=== PATIENT | male | born 1940 | race Caucasian/White ===

== ENCOUNTER 2020-04-13 12:44 | Emergency (ER) | payer BC, SELFPAY ==
[2020-04-13 13:13] VITALS: BP 121/92; PULSE 96; RESP 16; TEMP 36.9; O2SAT 95; BMI 31.4
--- NOTE | 2020-04-13 13:31 | ED_ITS ---
HPI - URI/Sore Throat General Chief Complaint: Upper Respiratory Symptoms Stated Complaint: covid symptoms [id number] Time Seen by Provider: 04/13/20 13:15 Source: patient Mode of arrival: ambulatory Limitations: no limitations History of Present Illness HPI Narrative: Patient tells me he has had chills, subjective fevers, vomiting for 2 days. No cough, shortness of breath, chest pain. No abdominal pain or diarrhea. Onset (ago): day(s) Consistency: constant Severity: mild Able to tolerate fluids by mouth: Yes Associated symptoms: denies other symptoms Related Data Allergies Allergy/AdvReac Type Severity Reaction Status Date / Time No Known Allergies Allergy Verified 04/13/20 13:31 Review of Systems Review of Systems: Yes all other systems are reviewed and are negative Constitutional: Constitutional: Reports no additional constitutional co mplaints, Denies body ache(s), Reports chills, Reports fever(s) (subjective ), Denies headache(s) and Denies weakness Eyes: Eyes: Reports no additional eye complaints and Denies change in vision ENT: Reports system reviewed and no additional complaints, except as documented, Denies headache(s), Denies nasal congestion and Denies nasal discharge Cardiovascular: Cardiovascular: Reports no additional cardiovascular complaints, Denies chest pain, Denies leg edema and Denies dyspnea Respiratory: Respiratory: Reports no additional respiratory complaints, Denies cough and Denies dyspnea Gastrointestinal: Gastrointestinal: Reports no additional gastrointestinal complaints, Denies abdominal pain, Denies diarrhea, Reports nausea and Reports vomiting Musculoskeletal: Musculoskeletal: Reports no additional musculoskeletal complaints, Denies back pain, Denies myalgias, Denies arthralgias, Denies joint swelling, Denies numbness and Denies tingling Integumentary/Breasts: Skin/Breast: Reports system reviewed and no additional complaints, except as docu and Denies rash Neurologic: Reports system reviewed and no additional complaints, except as documented, Denies Abnormal speech present, Denies headache(s), Denies focal weakness, Denies numbness, Denies tingling and Denies weakness PMFSH Past Medical History Attestation statement: The following information was validated with the patient. Source: obtained from family and nursing notes reviewed Medical History Anxiety FH: mastectomy Neuropathy Social History Social History Advance Directives: No Advance Directives Information Provided: Yes Physical Exam Vital Signs and I&O and Narrative: Vital Signs and I&O: Vital Signs Temp 98.5 F 04/13/20 13:13 Pulse 96 04/13/20 13:13 Resp 16 04/13/20 13:13 BP 121/92 H 04/13/20 13:13 Pulse Ox 95 04/13/20 13:13 Intake & Output 04/12/20 04/13/20 04/13/20 18:59 06:59 18:59 Weight 99.337 kg Body Mass Index 31.4 Const: General: cooperative, healthy appearing, comfortable and no acute distress Orientation/consciousness: patient oriented x3 Limitations: no limitations HENMT: Head: Yes normal to inspection Ears: hearing grossly normal bilaterally General nose exam: Normal external nose present Face and sinus: Yes normal facial exam Mouth: Normal oral and palatal mucosa present Throat: Yes posterior oropharynx normal Eyes: General: appearance normal, both eyes and all related structures Pupils: Equal, round and reactive pupils present Neck: Neck: Yes normal visual inspection Chest: Chest palpation & inspection: normal inspection of the chest Resp: Effort & Inspection: normal respiratory effort Auscultation: clear to auscultation bilaterally Cardio: Rate: regular rate Rhythm: regular rhythm Peripheral pulses: Peripheral pulses 2+ throughout GI: Inspection: Yes normal to inspection Palpation (GI): Soft to palpation and nontender Auscultation: normal bowel sounds Back/Spine/Pelvis: Thoracic/Lumbar Spine: thoracic and lumbar spine normal to inspection Skin: General skin exam: no rashes or lesions noted Neuro: General: patient oriented x3, no focal motor deficits and normal sensation to monofilament Cranial nerves: Yes Equal, round and reactive pupils present Cognition (Neuro): normal cognition Speech: No Abnormal speech present Gait exam (Neuro): Normal gait present Motor exam (neuro): 5/5 motor strength present throughout Extrem: General: Yes normal to inspection MDM - URI/Sore Throat MDM Narrative Medical decision making narrative: Patient here requesting COVID testing. He tells me he has had chills, subjective fevers and several episodes of vomiting over the last 2-3 days. No upper respiratory symptoms. Denies abdominal pain in abdomen is soft and nontender. Vital signs are stable with an oxygen saturation greater than 98%. The patient is currently on oral chemotherapy for recent breast cancer. I discussed with him that I am more than willing to testing for COVID but if he continues to have symptoms he should have additional labs and imaging. The patient deferred this at this time and will follow-up with his primary care for continued symptoms. We reviewed worrisome signs and symptoms and when to return to the emergency department. Comfortable with discharge home. Discharge Plan Discharge Clinical Impression: Viral infection Patient Disposition: Home, Self-Care Instructions: Viral Syndrome (ED) Additional Instructions: We have tested you today for COVID-19. We will call you in 1-2 days with your test results. If your test result is positive you will need to self-quarantine for a total of 14 days. If your test result is positive you should monitor yourself at home. Come to the emergency department for severe shortness of br eath or oxygen levels less than 90%. If your positive you should wear a mask at home if you are around family. If your test is negative you should discuss this with your primary care if you continue to have symptoms of fevers, chills, vomiting. Increase fluids at home Take Motrin or Tylenol if able as needed for pain or fever. Referrals: Arianne Rios MD [Primary Care Provider] - 2 days (if no better ) Interventions: ED Discharge Assessment Last Done: 04/13/20 13:41 Discharge Date/Time: 04/13/20 13:44 Print Language: Moroccan
== END 2020-04-13 13:44 | disposition home or self-care (01) ==
LOC: HO.ED 13:40
PROVIDERS: Nurse Practitioner Family; Emergency Provider Internal Medicine; PCP Internal Medicine
DX: B34.9 Viral infection, unspecified (principal); Z20.828 Contact with and (suspected) exposure to other viral communicable diseases; R68.83 Chills (without fever)
CPT/HCPCS: 87635; 99283